=== PATIENT | female | born 1980 | race Hispanic/Latino ===

== ENCOUNTER 2023-08-26 09:29 | Emergency (ER) | payer SELFPAY ==
[2023-08-26] MEDS ORDERED: HYDROcodone/Acetaminophen 5/325 mg Tablet ONE (09:47)
[2023-08-26] MEDS ORDERED: Bacitracin 1 PK ONE (09:51)
[2023-08-26] MEDS ORDERED: Boostrix 0.5 ML (Tdap) VIAL (>/=7 yrs of age) ONE (09:51)
== END 2023-08-26 10:53 | disposition home or self-care (01) ==
LOC: ERS 09:29
DX: T23.202A Burn of second degree of left hand, unspecified site, initial encounter (principal); I10 Essential (primary) hypertension; Z23 Encounter for immunization; X17.XXXA Contact with hot engines, machinery and tools, initial encounter
CPT/HCPCS: 16020; 90471; 90715